=== PATIENT | male | born 1985 | race Caucasian/White ===

== ENCOUNTER 2019-08-31 17:43 | Observation (INO) | payer OTHER ==
[2019-08-31] MEDS ORDERED: Sodium Chloride 0.9% 1,000 ML IV ONE ×2 (17:56→19:31)
[2019-08-31] MEDS ORDERED: Acetaminophen 500 MG Tab PO ONE (17:56)
--- NOTE | 2019-08-31 18:10 | EDM.PDOC ---
ED HPI GENERAL MEDICAL PROBLEM - General Chief Complaint: Respiratory Problem Stated Complaint: COUGH & FEVER Time Seen by Provider: 08/31/19 17:44 Source of Information: Reports: Patient History Limitations: Reports: No Limitations - History of Present Illness INITIAL COMMENTS - FREE TEXT/NARRATIVE: HISTORY AND PHYSICAL: History of present illness: Patient is a 33-year-old male who presents to the emergency room today with complaints of fever, body aches, sore throat and cough that started last night. Patient states he works for a [employer] and is frequently/routinely interacting with people from out of state. Last night he started to develop a productive cough and had subjective fever. Today he had his check his temperature on 2 separate occasions, first reading was 104 and approximately an hour later it was 105 degrees. He is concerned he has COVID-19 due to the pandemic, exposure to [id number] workers and his symptoms. Patient denies any change in vision, syncope or near syncope. Denies any chest pain, back pain, abdominal pain, nausea, vomiting, diarrhea, constipation or dysuria. Has not noted any blood in urine or stool. Patient has been eating and drinking appropriately. He states his and child have felt well, currently asymptomatic. Review of systems: As per history of present illness and below otherwise all systems reviewed and negative. Past medical history: As per history of present illness and as reviewed below otherwise noncontributory. Surgical history: As per history of present illness and as reviewed below otherwise noncontributory. Social history: See social history for further information Family history: As per history of present illness and as reviewed below otherwise noncontributory. Physical exam: General: Well developed and well nourished 33-year-old male. Alert and oriented. Nontoxic-appearing and in no acute distress. HEENT: Atraumatic, normocephalic, pupils equal and reactive bilaterally, negative for conjunctival pallor or scleral icterus, mucous membranes moist, TMs normal bilaterally, throat clear, neck supple, nontender, trachea midline. No drooling or trismus noted. No meningeal signs. No hot potato voice noted. Lungs: Slightly diminished throughout otherwise clear to auscultation, breath sounds equal bilaterally, chest nontender. Dry nonproductive cough noted. Heart: S1S2, regular rate and rhythm without overt murmur Abdomen: Soft, nondistended, nontender. Negative for masses or hepatosplenomegaly. Negative for costovertebral tenderness. Skin: Intact, warm to touch, and slightly diaphoretic. No lesions or rashes noted. Extremities: Atraumatic, moves all extremities per self without difficulty or deficits, negative for cords or calf pain. Neurovascular unremarkable. Neuro: Awake, alert, oriented. Cranial nerves II through XII unremarkable. Cerebellum unremarkable. Motor and sensory unremarkable throughout. Exam nonfocal. Notes: Oral temp was done 102.9 He is also tachycardic. We will do sepsis work up along with chest x-ray. Chest x-ray shows a patchy infiltrate in the left upper lobe; COVID-19 not ruled out. Lab work is unremarkable. Patient continues to be slightly tachycardic and states he feels not much improved after the IV fluids and medication. We did discuss doing outpatient antibiotic therapy for the pneumonia versus calling the hospitalist for admission. He states he does not feel comfortable going home as he has a young child and who are there (in case his COVID-19 was positive). He was made aware that these results will not be available for several days. Dr. Osorio was consulted and agreeable to keeping this patient for observation. Patient is aware and agreeable to plan of care. Diagnostics: CBC, CMP, Strep, Influenza, COVID-19, Lactic, BC x 2, CXR Therapeutics: IV fluids, Tylenol, Rocephin, Azithromycin Impression: Pneumonia Plan: Observation admission to Med/Surg Definitive disposition and diagnosis as appropriate pending reevaluation and review of above. Duration: Day(s): headache Pain Score (Numeric/FACES): 5 - Related Data Allergies Allergy/AdvReac Type Severity Reaction Status Date / Time Penicillins Allergy Hives Verified 08/31/19 17:56 Home Meds: Home Meds . [No Known Home Meds] 08/31/19 [History] ED ROS GENERAL - Review of Systems Review Of Systems: Comprehensive ROS is negative, except as noted in HPI. ED EXAM, GENERAL - Physical Exam Exam: See Below (See dictation) Course - Vital Signs Last Recorded V/S: Last Vital Signs Temp 102.9 F H 08/31/19 18:35 Pulse 100 08/31/19 19:32 Resp 20 08/31/19 19:32 BP 117/69 08/31/19 17:45 Pulse Ox 93 L 04/10/20 19:32 - Orders/Labs/Meds Orders: Active Orders 24 hr Category Date Time Status Admission Status [Patient Status] [ADT] Stat ADT 08/31/19 19:31 Active CORONAVIRUS COVID-19 PCR PHL Stat Lab 08/31/19 18:40 Received CULTURE BLOOD [BC] Stat Lab 08/31/19 18:40 Received CULTURE BLOOD [BC] Stat Lab 08/31/19 19:01 Received CULTURE STREP A CONFIRMATION [RM] Stat Lab 08/31/19 18:39 Results STREP SCRN A RAPID W CULT CONF [RM] Stat Lab 08/31/19 18:39 Results Sodium Chloride 0.9% [Normal Saline] 1,000 ml Med 08/31/19 19:31 Active IV STAT cefTRIAXone [Rocephin in Dextrose,Iso-Osm 1 GM/50 ML] 1 Med 08/31/19 19:29 Active gm Premix Bag 1 bag IV ONETIME Blood Culture x2 Reflex Set [OM.PC] Stat Oth 08/31/19 17:59 Ordered Isolation [COMM] Routine Oth 08/31/19 17:55 Active Medication Orders Ceftriaxone Sodium/Dextrose 1 (gm/ Premix) 50 mls @ 100 mls/hr IV ONETIME ONE Stop: 08/31/19 19:58 Sodium Chloride (Normal Saline) 1,000 mls @ 150 mls/hr IV STAT ONE Stop: 09/01/19 02:10 Labs: Laboratory Tests 08/31/19 08/31/19 08/31/19 Range/Units 18:40 18:40 18:40 WBC 10.07 (4.0-11.0) K/uL RBC 5.64 (4.50-5.90) M/uL Hgb 16.6 (13.0-17.0) g/dL Hct 49.1 (38.0-50.0) % MCV 87.1 (80.0-98.0) fL MCH 29.4 (27.0-32.0) pg MCHC 33.8 (31.0-37.0) g/dL RDW Std Deviation 41.0 (28.0-62.0) fl RDW Coeff of Tamie 13 (11.0-15.0) % Plt Count 270 (150-400) K/uL MPV 10.20 (7.40-12.00) fL Neut % (Auto) 80.5 H (48.0-80.0) % Lymph % (Auto) 11.8 L (16.0-40.0) % [place] % (Auto) 7.6 (0.0-15.0) % Eos % (Auto) 0.0 (0.0-7.0) % Baso % (Auto) 0.1 (0.0-1.5) % Neut # (Auto) 8.1 H (1.4-5.7) K/uL Lymph # (Auto) 1.2 (0.6-2.4) K/uL [place] # (Auto) 0.8 (0.0-0.8) K/uL Eos # (Auto) 0.0 (0.0-0.7) K/uL Baso # (Auto) 0.0 (0.0-0.1) K/uL Nucleated RBC % 0.0 /100WBC Nucleated RBCs # 0 K/uL Lactate 1.2 (0.20-2.00) mmol/L Sodium 139 (136-148) mmol/L Potassium 4.2 (3.5-5.1) mmol/L Chloride 101 (98-107) mmol/L Carbon Dioxide 27.4 (21.0-32.0) mmol/L BUN 16 (7.0-18.0) mg/dL Creatinine 1.2 (0.8-1.3) mg/dL Est Cr Clr Drug Dosing 92.09 mL/min Estimated GFR (MDRD) > 60.0 ml/min Glucose 101 (74-106) mg/dL Calcium 9.1 (8.5-10.1) mg/dL Total Bilirubin 0.7 (0.2-1.0) mg/dL AST 18 (15-37) IU/L ALT 31 (14-63) IU/L Alkaline Phosphatase 66 (46-116) U/L Total Protein 7.7 (6.4-8.2) g/dL Albumin 4.0 (3.4-5.0) g/dL Globulin 3.7 (2.6-4.0) g/dL Albumin/Globulin Ratio 1.1 (0.9-1.6) Meds: Medications Generic Name Dose Route Start Last Admin Trade Name Freq PRN Reason Stop Dose Admin Ceftriaxone Sodium/Dextrose 1 50 mls @ 100 mls/hr 08/31/19 19:29 gm/ Premix IV 08/31/19 19:58 ONETIME ONE Sodium Chloride 1,000 mls @ 150 mls/hr 08/31/19 19:31 Normal Saline IV 09/01/19 02:10 STAT ONE Discontinued Medications Generic Name Dose Route Start Last Admin Trade Name Freq PRN Reason Stop Dose Admin Acetaminophen 1,000 mg 08/31/19 17:56 08/31/19 18:35 Tylenol Extra Strength PO 08/31/19 17:57 1,000 mg ONETIME ONE Administration Azithromycin 500 mg 08/31/19 19:31 Zithromax PO 08/31/19 19:32 NOW STA Doxycycline Hyclate 100 mg 08/31/19 18:59 Vibramycin PO 08/31/19 19:00 ONETIME ONE Sodium Chloride 1,000 mls @ 999 mls/hr 08/31/19 17:56 08/31/19 18:35 Normal Saline IV 08/31/19 18:56 999 mls/hr STAT ONE Administration Departure - Departure Time of Disposition: 19:40 Disposition: Refer to Observation Clinical Impression: Pneumonia Qualifiers: Pneumonia type: due to unspecified organism Laterality: left Lung location: upper lobe of lung Qualified Code(s): J18.9 - Pneumonia, unspecified organism - Discharge Information Referrals: Edin Oliva MD [Primary Care Provider] - Forms: ED Department Discharge Sepsis Event Note - Evaluation Sepsis Screening Result: No Definite Risk - Focused Exam Vital Signs: Vital Signs Temp Temp Pulse Resp BP Pulse Ox 08/31/19 19:32 100 20 93 L 08/31/19 18:35 102.9 F H 08/31/19 17:45 98.4 F 111 H 20 117/69 94 L Date Exam was Performed: 08/31/19 Time Exam was Performed: 19:35 - My Orders Last 24 Hours: My Active Orders 08/31/19 17:55 Isolation [COMM] Routine 08/31/19 17:59 Blood Culture x2 Reflex Set [OM.PC] Stat 08/31/19 18:39 CULTURE STREP A CONFIRMATION [RM] Stat STREP SCRN A RAPID W CULT CONF [RM] Stat 08/31/19 18:40 CORONAVIRUS COVID-19 PCR PHL Stat CULTURE BLOOD [BC] Stat 08/31/19 19:01 CULTURE BLOOD [BC] Stat 08/31/19 19:29 cefTRIAXone [Rocephin in Dextrose,Iso-Osm 1 GM/50 ML] 1 gm Premix Bag 1 bag IV ONETIME 08/31/19 19:31 Admission Status [Patient Status] [ADT] Stat Sodium Chloride 0.9% [Normal Saline] 1,000 ml IV STAT - Assessment/Plan Last 24 Hours: My Active Orders 08/31/19 17:55 Isolation [COMM] Routine 08/31/19 17:59 Blood Culture x2 Reflex Set [OM.PC] Stat 08/31/19 18:39 CULTURE STREP A CONFIRMATION [RM] Stat STREP SCRN A RAPID W CULT CONF [RM] Stat 08/31/19 18:40 CORONAVIRUS COVID-19 PCR PHL Stat CULTURE BLOOD [BC] Stat 08/31/19 19:01 CULTURE BLOOD [BC] Stat 08/31/19 19:29 cefTRIAXone [Rocephin in Dextrose,Iso-Osm 1 GM/50 ML] 1 gm Premix Bag 1 bag IV ONETIME 08/31/19 19:31 Admission Status [Patient Status] [ADT] Stat Sodium Chloride 0.9% [Normal Saline] 1,000 ml IV STAT
--- NOTE | 2019-08-31 18:33 | CR ---
INDICATION: Chest pain; shortness of breath; severe cough; COVID 19 precautions. Comparison: None. TECHNIQUE: Portable AP chest. FINDINGS: Patchy area of consolidation left upper lobe; COVID 19 is not ruled out. Normal size cardiac silhouette. No pneumothorax or pleural effusion. IMPRESSION: Patchy infiltrate left upper lobe; COVID 19 not ruled out. Dictated by Gayle Quintero MD @ Aug 31 2019 6:29PM Signed by Dr. Gayle Quintero @ Aug 31 2019 6:31PM
[2019-08-31] MEDS ORDERED: Doxycycline 100 MG Cap PO ONE (18:59)
[2019-08-31 19:15] LABS: BLOOD UREA NITROGEN,BUN 16 mg/dL (7.0-18.0); CARBON DIOXIDE,CO2 27.4 mmol/L (21.0-32.0); CHLORIDE,CL 101 mmol/L (98-107); GLUCOSE RANDOM 101 mg/dL (74-106); POTASSIUM,K 4.2 mmol/L (3.5-5.1); SODIUM,NA 139 mmol/L (136-148)
[2019-08-31] MEDS ORDERED: cefTRIAXone 1 GM in Premix Bag 1 BAG IV ONE (19:29)
[2019-08-31] MEDS ORDERED: Azithromycin 250 MG Tab PO STA (19:31)
[2019-08-31] MEDS ORDERED: Sodium Chloride 0.9% 1,000 ML IV SCH (20:00)
[2019-08-31] MEDS: Ascorbic Acid 500 MG Tab PO SCH (21:14)
--- NOTE | 2019-08-31 22:02 | PCM.HP.2 ---
H&P History of Present Illness - General Date of Service: 08/31/19 Admit Problem/Dx: Admission Diagnosis/Problem Admission Diagnosis/Problem Pneumonia - History of Present Illness Initial Comments - Free Text/Narative: Patient is a 33-year-old male who presents to the emergency room today with complaints of fever, body aches, sore throat and cough that started last night. Patient states he woke up in the middle on night drenched in sweats and had a high fever. 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 Patient states that fever is associated with develop a productive cough. He checked hi stemp at home , its was 104 and 105 on 2 separate occasions. He is concerned he has COVID-19 due to the pandemic, exposure to [id number] workers and his symptoms. Patient denies any change in vision, syncope or near syncope. Denies any chest pain, back pain, abdominal pain, nausea, vomiting, diarrhea, constipation or dysuria. Has not noted any blood in urine or stool. Patient has been eating and drinking appropriately. He states his and child have felt well, currently asymptomatic. Patient was slightly hypoxic 92-93 on RA resting, febrile and tachy in ER. BP was stable, CXR showed consolidation of left upper lung. Flu negative, Covid_19 swab sent for testing, Due to sepsis, Patient is being admitted for management of community acquired pneumonia and started on IV antibiotics. Onset of Symptoms: Reports: Today, Sudden Duration of Symptoms: Reports: Hour(s): Severity: Moderate headache Pain Score (Numeric/FACES): 5 - Related Data Allergies/Adverse Reactions: Allergies Allergy/AdvReac Type Severity Reaction Status Date / Time Penicillins Allergy Hives Verified 08/31/19 21:29 Home Medications: Home Meds . [No Known Home Meds] 08/31/19 [History] Past Medical History Musculoskeletal History: Reports: None Neurological History: Reports: None - Past Surgical History Neurological Surgical History: Reports: Other (See Below) Other Neurological Surgeries/Procedures: back sx for bulging disc Musculoskeletal Surgical History: Reports: Other (See Below) Other Musculoskeletal Surgeries/Procedures:: R knee re-alignment Social & Family History - Family History Family Medical History: Noncontributory - Tobacco Use Smoking Status *Q: Former Smoker Used Tobacco, but Quit: Yes Month/Year Tobacco Last Used: "12 years ago" - Recreational Drug Use Recreational Drug Use: No H&P Review of Systems - Review of Systems: Review Of Systems: See Below General: Reports: Fever, Chills, Malaise, Weakness, Fatigue, Night Sweats. Denies: Decreased Appetite, Weight Loss Pulmonary: Reports: Cough, Sputum. Denies: Shortness of Breath, Wheezing, Hemoptysis Cardiovascular: Reports: Dyspnea on Exertion. Denies: Chest Pain, Palpitations Gastrointestinal: Reports: Flatus. Denies: Abdominal Pain, Anorexia, Black Stool, Constipation, Diarrhea, Distension, Hematemesis Genitourinary: Denies: Dysuria, Frequency, Burning Musculoskeletal: Denies: Neck Pain, Shoulder Pain, Arm Pain Skin: Denies: Cyanosis, Jaundice, Mottled Exam - Exam Exam: See Below - Vital Signs Vital Signs: Last Vital Signs Temp 38.2 C H 08/31/19 20:50 Pulse 85 08/31/19 20:40 Resp 20 08/31/19 19:32 BP 114/66 08/31/19 20:35 Pulse Ox 95 08/31/19 20:40 Weight: 92 kg - Exam General: Alert, Oriented Neck: Supple, Trachea Midline Lungs: Normal Respiratory Effort, Decreased Breath Sounds (left upper lobe) Cardiovascular: Regular Rate, Regular Rhythm GI/Abdominal Exam: Normal Bowel Sounds, Soft, Non-Tender - Patient Data Lab Results Last 24 hrs: Laboratory Results - last 24 hr 08/31/19 08/31/19 08/31/19 Range/Units 18:40 18:40 18:40 WBC 10.07 (4.0-11.0) K/uL RBC 5.64 (4.50-5.90) M/uL Hgb 16.6 (13.0-17.0) g/dL Hct 49.1 (38.0-50.0) % MCV 87.1 (80.0-98.0) fL MCH 29.4 (27.0-32.0) pg MCHC 33.8 (31.0-37.0) g/dL RDW Std Deviation 41.0 (28.0-62.0) fl RDW Coeff of Tamie 13 (11.0-15.0) % Plt Count 270 (150-400) K/uL MPV 10.20 (7.40-12.00) fL Neut % (Auto) 80.5 H (48.0-80.0) % Lymph % (Auto) 11.8 L (16.0-40.0) % [place] % (Auto) 7.6 (0.0-15.0) % Eos % (Auto) 0.0 (0.0-7.0) % Baso % (Auto) 0.1 (0.0-1.5) % Neut # (Auto) 8.1 H (1.4-5.7) K/uL Lymph # (Auto) 1.2 (0.6-2.4) K/uL [place] # (Auto) 0.8 (0.0-0.8) K/uL Eos # (Auto) 0.0 (0.0-0.7) K/uL Baso # (Auto) 0.0 (0.0-0.1) K/uL Nucleated RBC % 0.0 /100WBC Nucleated RBCs # 0 K/uL Lactate 1.2 (0.20-2.00) mmol/L Sodium 139 (136-148) mmol/L Potassium 4.2 (3.5-5.1) mmol/L Chloride 101 (98-107) mmol/L Carbon Dioxide 27.4 (21.0-32.0) mmol/L BUN 16 (7.0-18.0) mg/dL Creatinine 1.2 (0.8-1.3) mg/dL Est Cr Clr Drug Dosing 92.09 mL/min Estimated GFR (MDRD) > 60.0 ml/min Glucose 101 (74-106) mg/dL Calcium 9.1 (8.5-10.1) mg/dL Total Bilirubin 0.7 (0.2-1.0) mg/dL AST 18 (15-37) IU/L ALT 31 (14-63) IU/L Alkaline Phosphatase 66 (46-116) U/L Total Protein 7.7 (6.4-8.2) g/dL Albumin 4.0 (3.4-5.0) g/dL Globulin 3.7 (2.6-4.0) g/dL Albumin/Globulin Ratio 1.1 (0.9-1.6) Urine Color Urine Appearance Urine pH (5.0-8.0) Ur Specific [place] (1.001-1.035) Urine Protein (NEGATIVE) mg/dL Urine Glucose (UA) (NEGATIVE) mg/dL Urine Ketones (NEGATIVE) mg/dL Urine Occult Blood (NEGATIVE) Urine Nitrite (NEGATIVE) Urine Bilirubin (NEGATIVE) Urine Urobilinogen (<2.0) EU/dL Ur Leukocyte Esterase (NEGATIVE) 08/31/19 Range/Units 21:45 WBC (4.0-11.0) K/uL RBC (4.50-5.90) M/uL Hgb (13.0-17.0) g/dL Hct (38.0-50.0) % MCV (80.0-98.0) fL MCH (27.0-32.0) pg MCHC (31.0-37.0) g/dL RDW Std Deviation (28.0-62.0) fl RDW Coeff of Tamie (11.0-15.0) % Plt Count (150-400) K/uL MPV (7.40-12.00) fL Neut % (Auto) (48.0-80.0) % Lymph % (Auto) (16.0-40.0) % [place] % (Auto) (0.0-15.0) % Eos % (Auto) (0.0-7.0) % Baso % (Auto) (0.0-1.5) % Neut # (Auto) (1.4-5.7) K/uL Lymph # (Auto) (0.6-2.4) K/uL [place] # (Auto) (0.0-0.8) K/uL Eos # (Auto) (0.0-0.7) K/uL Baso # (Auto) (0.0-0.1) K/uL Nucleated RBC % /100WBC Nucleated RBCs # K/uL Lactate (0.20-2.00) mmol/L Sodium (136-148) mmol/L Potassium (3.5-5.1) mmol/L Chloride (98-107) mmol/L Carbon Dioxide (21.0-32.0) mmol/L BUN (7.0-18.0) mg/dL Creatinine (0.8-1.3) mg/dL Est Cr Clr Drug Dosing mL/min Estimated GFR (MDRD) ml/min Glucose (74-106) mg/dL Calcium (8.5-10.1) mg/dL Total Bilirubin (0.2-1.0) mg/dL AST (15-37) IU/L ALT (14-63) IU/L Alkaline Phosphatase (46-116) U/L Total Protein (6.4-8.2) g/dL Albumin (3.4-5.0) g/dL Globulin (2.6-4.0) g/dL Albumin/Globulin Ratio (0.9-1.6) Urine Color YELLOW Urine Appearance CLEAR Urine pH 6.5 (5.0-8.0) Ur Specific [place] 1.025 (1.001-1.035) Urine Protein NEGATIVE (NEGATIVE) mg/dL Urine Glucose (UA) NEGATIVE (NEGATIVE) mg/dL Urine Ketones TRACE H (NEGATIVE) mg/dL Urine Occult Blood NEGATIVE (NEGATIVE) Urine Nitrite NEGATIVE (NEGATIVE) Urine Bilirubin NEGATIVE (NEGATIVE) Urine Urobilinogen 1.0 (<2.0) EU/dL Ur Leukocyte Esterase TRACE H (NEGATIVE) Result Diagrams: 08/31/19 18:40 08/31/19 18:40 E[place] Results Last 24 hrs: Microbiology 08/31/19 18:40 Influenza Type A Antigen Screen - Final Nasopharyngeal Swab NEGATIVE INFLUENZA A VIRUS AG REFERENCE RANGE: NEGATIVE Influenza Type B Antigen Screen - Final NEGATIVE INFLUENZA B VIRUS AG REFERENCE RANGE: NEGATIVE 08/31/19 18:39 Group A Streptococcus Rapid Screen - Final Throat NEGATIVE STREP A SCREEN REFERENCE RANGE: NEGATIVE Sepsis Event Note - Evaluation Sepsis Screening Result: No Definite Risk - Focused Exam Vital Signs: Vital Signs Temp Temp Temp Pulse Resp BP Pulse Ox 08/31/19 20:50 38.2 C H 08/31/19 20:40 85 95 08/31/19 20:35 84 114/66 94 L 08/31/19 19:32 100 20 93 L 08/31/19 19:05 38.1 C 08/31/19 18:35 39.4 C H 08/31/19 17:45 36.9 C 111 H 20 117/69 94 L Date Exam was Performed: 08/31/19 Time Exam was Performed: 22:37 - Problem List (1) Sepsis SNOMED Code(s): 93983599 ICD Code: A41.9 - SEPSIS, UNSPECIFIED ORGANISM Status: Acute Current Visit: Yes (2) Pneumonia SNOMED Code(s): 901651498 ICD Code: J18.9 - PNEUMONIA, UNSPECIFIED ORGANISM Status: Acute Current Visit: Yes Qualifiers: Pneumonia type: due to unspecified organism Laterality: left Lung location: upper lobe of lung Qualified Code(s): J18.9 - Pneumonia, unspecified organism Problem List Initiated/Reviewed/Updated: Yes Orders Last 24hrs: Active Orders 24 hr Category Date Time Status Admission Status [Patient Status] [ADT] Stat ADT 08/31/19 19:31 Active Ambulate [RC] ASDIRECTED Care 08/31/19 19:56 Active Antiembolic Devices [RC] PER UNIT ROUTINE Care 08/31/19 19:58 Active Oxygen Therapy [RC] PRN Care 08/31/19 19:56 Active Pulse Oximetry [RC] PRN Care 08/31/19 19:57 Active VTE/DVT Education [RC] PER UNIT ROUTINE Care 08/31/19 19:56 Active Vital Signs [RC] Q4H Care 08/31/19 19:56 Active Regular Diet [DIET] Diet 08/31/19 Dinner Active CORONAVIRUS COVID-19 PCR PHL Stat Lab 08/31/19 18:40 Received CULTURE BLOOD [BC] Stat Lab 08/31/19 18:40 Received CULTURE BLOOD [BC] Stat Lab 08/31/19 19:01 Received CULTURE STREP A CONFIRMATION [RM] Stat Lab 08/31/19 18:39 Results STREP SCRN A RAPID W CULT CONF [RM] Stat Lab 08/31/19 18:39 Results Acetaminophen [Tylenol] Med 08/31/19 20:00 Active 325 mg PO Q4H PRN Ascorbic Acid [Vitamin C] Med 08/31/19 20:15 Active 500 mg PO DAILY Azithromycin [Zithromax] Med 09/01/19 09:00 Active 500 mg PO Q24H Sodium Chloride 0.9% [Normal Saline] 1,000 ml Med 08/31/19 20:00 Active IV ASDIRECTED Sodium Chloride 0.9% [Normal Saline] 1,000 ml Med 08/31/19 19:31 Active IV STAT cefTRIAXone [Rocephin] 1 gm Med 09/01/19 09:00 Active Sodium Chloride 0.9% [Normal Saline] 50 ml IV Q24H Blood Culture x2 Reflex Set [OM.PC] Stat Oth 08/31/19 17:59 Ordered Isolation [COMM] Routine Oth 08/31/19 17:55 Active Sequential Compression Device [OM.PC] Per Unit Routine Oth 08/31/19 19:57 Ordered Resuscitation Status Routine Resus Stat 08/31/19 19:56 Ordered Medication Orders Acetaminophen (Tylenol) 325 mg PO Q4H PRN PRN Reason: Fever Ascorbic Acid (Vitamin C) 500 mg PO DAILY [facility]AIR[facility] Last Admin: 08/31/19 21:14 Dose: 500 mg Azithromycin (Zithromax) 500 mg PO Q24H [facility] Sodium Chloride (Normal Saline) 1,000 mls @ 150 mls/hr IV STAT ONE Stop: 09/01/19 02:10 Last Admin: 08/31/19 19:52 Dose: 150 mls/hr Sodium Chloride (Normal Saline) 1,000 mls @ 125 mls/hr IV ASDIRECTED [facility]IRA Ceftriaxone Sodium 1 gm/ (Sodium Chloride) 50 mls @ 100 mls/hr IV Q24H [facility] Assessment/Plan Comment:: 33 y/o admitted for CAP/Sepsis Lactic acid normal FLu negative, strep negative Received 1L fluids in ER BP is stable Fever improving, HR is improving as well Labs noted Will Cont Azithromycin and IV ceftriaxone Blood cultures obtained in ER, fu on results Obtain UA Will check HbA1c, TSH Will monitor and replete electrolytes as need fu on COVID
[2019-08-31 23:06] LABS: HEMOGLOBIN A1C 5.3 % (4.5-6.2)
[2019-08-31] MEDS: Acetaminophen 325 MG Tab PO PRN (23:38)
[2019-09-01 07:01] LABS: BLOOD UREA NITROGEN,BUN 12 mg/dL (7.0-18.0); CHLORIDE,CL 103 mmol/L (98-107); GLUCOSE RANDOM 97 mg/dL (74-106); POTASSIUM,K 3.8 mmol/L (3.5-5.1); SODIUM,NA 139 mmol/L (136-148)
[2019-09-01] MEDS ORDERED: Azithromycin 250 MG Tab PO SCH (09:00)
[2019-09-01] MEDS ORDERED: cefTRIAXone 1 GM in Sodium Chloride 0.9% 50 ML IV SCH (09:00)
[2019-09-01] MEDS: Ascorbic Acid 500 MG Tab PO SCH (09:18)
[2019-09-01] MEDS ORDERED: cefTRIAXone 1 GM in Premix Bag 1 BAG IV SCH (10:00)
[2019-09-01] MEDS: Acetaminophen 325 MG Tab PO PRN (10:32)
[2019-09-01] MEDS ORDERED: Magnesium Oxide 400 MG Tab PO ONE (10:42)
--- NOTE | 2019-09-01 11:51 | PCM.DCSUM1 ---
Discharge Summary - Hospital Course Free Text/Narrative:: Patient is a 33-year-old male who presents to the emergency room today with complaints of fever, body aches, sore throat and cough that started last night. Patient states he woke up in the middle on night drenched in sweats and had a high fever. 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 Patient states that fever is associated with develop a productive cough. He checked hi stemp at home , its was 104 and 105 on 2 separate occasions. He is concerned he has COVID-19 due to the pandemic, exposure to [id number] workers and his symptoms. Patient denies any change in vision, syncope or near syncope. Denies any chest pain, back pain, abdominal pain, nausea, vomiting, diarrhea, constipation or dysuria. Has not noted any blood in urine or stool. Patient has been eating and drinking appropriately. He states his and child have felt well, currently asymptomatic. Patient was slightly hypoxic 92-93 on RA resting, febrile and tachy in ER. BP was stable, CXR showed consolidation of left upper lung. Flu negative, Covid_19 swab sent for testing, Due to sepsis, Patient is being admitted for management of community acquired pneumonia and started on IV antibiotics. Over night sepsis resolved, patient was breathing on RA 95 to 97 % . Patient was keen on going home and wanted to be discharged since he was feeling better,. Patient was informed if he gets worsening of his symptoms to call a provider or come back to ER. Patient was hemodynamically stable for dc and discharge on oral antibiotics for recommended self isolation for 2 weeks. - Discharge Data Discharge Date: 09/01/19 Discharge Disposition: Home, Self-Care 01 Condition: Stable - Referral to Home Health Primary Care Physician: Edin Oliva MD - Discharge Diagnosis/Problem(s) (1) Sepsis SNOMED Code(s): 27364494 ICD Code: A41.9 - SEPSIS, UNSPECIFIED ORGANISM Status: Acute (2) Pneumonia SNOMED Code(s): 749741169 ICD Code: J18.9 - PNEUMONIA, UNSPECIFIED ORGANISM Status: Acute Qualifiers: Pneumonia type: due to unspecified organism Laterality: left Lung location: upper lobe of lung Qualified Code(s): J18.9 - Pneumonia, unspecified organism - Patient Instructions Diet: Regular Diet as Tolerated Activity: As Tolerated Driving: May Drive Today Showering/Bathing: May Shower Notify Provider of: Fever, Increased Pain, Swelling and Redness, Nausea and/or Vomiting Other/Special Instructions: please stay in self isolation for 14 days, notify your PCP if your symtpoms get worse such as chest pain, SOB, high feveres, Nausea, vomiting diarrhea - Discharge Plan *PRESCRIPTION DRUG MONITORING PROGRAM REVIEWED*: No *COPY OF PRESCRIPTION DRUG MONITORING REPORT IN PATIENT LORY: No Prescriptions/Med Rec: Acetaminophen [Tylenol] 325 mg PO Q4H PRN #20 tablet PRN Reason: Fever Ascorbic Acid [Vitamin C] 500 mg PO DAILY #20 tablet Levofloxacin 750 mg PO DAILY #5 tablet Home Medications: Home Meds Acetaminophen [Tylenol] 325 mg PO Q4H PRN #20 tablet 09/01/19 [Rx] Ascorbic Acid [Vitamin C] 500 mg PO DAILY #20 tablet 09/01/19 [Rx] Levofloxacin 750 mg PO DAILY #5 tablet 09/01/19 [Rx] Patient Handouts: Acetaminophen tablets or caplets, Levofloxacin tablets, Coronavirus Information 08/06/19, Ascorbic Acid, Vitamin C chewable tablets Referrals: Edin Oliva MD [Primary Care Provider] - - Discharge Summary/Plan Comment DC Time >30 min.: No - Patient Data Vitals - Most Recent: Last Vital Signs Temp 38 C 09/01/19 10:32 Pulse 85 09/01/19 07:49 Resp 15 09/01/19 07:49 BP 115/68 09/01/19 07:49 Pulse Ox 95 09/01/19 07:49 Weight - Most Recent: 92 kg I&O - Last 24 hours: Intake & Output 08/31/19 09/01/19 09/01/19 22:59 06:59 14:59 Intake Total 50 1225 Output Total 400 Balance 50 825 Lab Results - Last 24 hrs: Laboratory Results - last 24 hr 08/31/19 08/31/19 08/31/19 Range/Units 18:40 18:40 18:40 WBC 10.07 (4.0-11.0) K/uL RBC 5.64 (4.50-5.90) M/uL Hgb 16.6 (13.0-17.0) g/dL Hct 49.1 (38.0-50.0) % MCV 87.1 (80.0-98.0) fL MCH 29.4 (27.0-32.0) pg MCHC 33.8 (31.0-37.0) g/dL RDW Std Deviation 41.0 (28.0-62.0) fl RDW Coeff of Tamie 13 (11.0-15.0) % Plt Count 270 (150-400) K/uL MPV 10.20 (7.40-12.00) fL Neut % (Auto) 80.5 H (48.0-80.0) % Lymph % (Auto) 11.8 L (16.0-40.0) % [place] % (Auto) 7.6 (0.0-15.0) % Eos % (Auto) 0.0 (0.0-7.0) % Baso % (Auto) 0.1 (0.0-1.5) % Neut # (Auto) 8.1 H (1.4-5.7) K/uL Lymph # (Auto) 1.2 (0.6-2.4) K/uL [place] # (Auto) 0.8 (0.0-0.8) K/uL Eos # (Auto) 0.0 (0.0-0.7) K/uL Baso # (Auto) 0.0 (0.0-0.1) K/uL Nucleated RBC % 0.0 /100WBC Nucleated RBCs # 0 K/uL Lactate 1.2 (0.20-2.00) mmol/L Sodium 139 (136-148) mmol/L Potassium 4.2 (3.5-5.1) mmol/L Chloride 101 (98-107) mmol/L Carbon Dioxide 27.4 (21.0-32.0) mmol/L BUN 16 (7.0-18.0) mg/dL Creatinine 1.2 (0.8-1.3) mg/dL Est Cr Clr Drug Dosing 92.09 mL/min Estimated GFR (MDRD) > 60.0 ml/min Glucose 101 (74-106) mg/dL Hemoglobin A1c (4.5-6.2) % Calcium 9.1 (8.5-10.1) mg/dL Phosphorus (2.6-4.7) mg/dL Magnesium (1.8-2.4) mg/dL Total Bilirubin 0.7 (0.2-1.0) mg/dL AST 18 (15-37) IU/L ALT 31 (14-63) IU/L Alkaline Phosphatase 66 (46-116) U/L Total Protein 7.7 (6.4-8.2) g/dL Albumin 4.0 (3.4-5.0) g/dL Globulin 3.7 (2.6-4.0) g/dL Albumin/Globulin Ratio 1.1 (0.9-1.6) Free T4 (0.76-1.46) ng/dL TSH 3rd Generation (0.36-3.74) uIU/mL Urine Color Urine Appearance Urine pH (5.0-8.0) Ur Specific Dennis (1.001-1.035) Urine Protein (NEGATIVE) mg/dL Urine Glucose (UA) (NEGATIVE) mg/dL Urine Ketones (NEGATIVE) mg/dL Urine Occult Blood (NEGATIVE) Urine Nitrite (NEGATIVE) Urine Bilirubin (NEGATIVE) Urine Urobilinogen (<2.0) EU/dL Ur Leukocyte Esterase (NEGATIVE) 08/31/19 08/31/19 08/31/19 Range/Units 18:40 18:40 21:45 WBC (4.0-11.0) K/uL RBC (4.50-5.90) M/uL Hgb (13.0-17.0) g/dL Hct (38.0-50.0) % MCV (80.0-98.0) fL MCH (27.0-32.0) pg MCHC (31.0-37.0) g/dL RDW Std Deviation (28.0-62.0) fl RDW Coeff of Tamie (11.0-15.0) % Plt Count (150-400) K/uL MPV (7.40-12.00) fL Neut % (Auto) (48.0-80.0) % Lymph % (Auto) (16.0-40.0) % [place] % (Auto) (0.0-15.0) % Eos % (Auto) (0.0-7.0) % Baso % (Auto) (0.0-1.5) % Neut # (Auto) (1.4-5.7) K/uL Lymph # (Auto) (0.6-2.4) K/uL [place] # (Auto) (0.0-0.8) K/uL Eos # (Auto) (0.0-0.7) K/uL Baso # (Auto) (0.0-0.1) K/uL Nucleated RBC % /100WBC Nucleated RBCs # K/uL Lactate (0.20-2.00) mmol/L Sodium (136-148) mmol/L Potassium (3.5-5.1) mmol/L Chloride (98-107) mmol/L Carbon Dioxide (21.0-32.0) mmol/L BUN (7.0-18.0) mg/dL Creatinine (0.8-1.3) mg/dL Est Cr Clr Drug Dosing mL/min Estimated GFR (MDRD) ml/min Glucose (74-106) mg/dL Hemoglobin A1c 5.3 (4.5-6.2) % Calcium (8.5-10.1) mg/dL Phosphorus (2.6-4.7) mg/dL Magnesium (1.8-2.4) mg/dL Total Bilirubin (0.2-1.0) mg/dL AST (15-37) IU/L ALT (14-63) IU/L Alkaline Phosphatase (46-116) U/L Total Protein (6.4-8.2) g/dL Albumin (3.4-5.0) g/dL Globulin (2.6-4.0) g/dL Albumin/Globulin Ratio (0.9-1.6) Free T4 (0.76-1.46) ng/dL TSH 3rd Generation 0.31 L (0.36-3.74) uIU/mL Urine Color YELLOW Urine Appearance CLEAR Urine pH 6.5 (5.0-8.0) Ur Specific Dennis 1.025 (1.001-1.035) Urine Protein NEGATIVE (NEGATIVE) mg/dL Urine Glucose (UA) NEGATIVE (NEGATIVE) mg/dL Urine Ketones TRACE H (NEGATIVE) mg/dL Urine Occult Blood NEGATIVE (NEGATIVE) Urine Nitrite NEGATIVE (NEGATIVE) Urine Bilirubin NEGATIVE (NEGATIVE) Urine Urobilinogen 1.0 (<2.0) EU/dL Ur Leukocyte Esterase TRACE H (NEGATIVE) 09/01/19 09/01/19 09/01/19 Range/Units 06:08 06:08 06:08 WBC 7.88 (4.0-11.0) K/uL RBC 4.99 (4.50-5.90) M/uL Hgb 14.4 (13.0-17.0) g/dL Hct 43.6 (38.0-50.0) % MCV 87.4 (80.0-98.0) fL MCH 28.9 (27.0-32.0) pg MCHC 33.0 (31.0-37.0) g/dL RDW Std Deviation 40.8 (28.0-62.0) fl RDW Coeff of Tamie 13 (11.0-15.0) % Plt Count 223 (150-400) K/uL MPV 10.30 (7.40-12.00) fL Neut % (Auto) 73.0 (48.0-80.0) % Lymph % (Auto) 15.2 L (16.0-40.0) % [place] % (Auto) 11.7 (0.0-15.0) % Eos % (Auto) 0.0 (0.0-7.0) % Baso % (Auto) 0.1 (0.0-1.5) % Neut # (Auto) 5.8 H (1.4-5.7) K/uL Lymph # (Auto) 1.2 (0.6-2.4) K/uL [place] # (Auto) 0.9 H (0.0-0.8) K/uL Eos # (Auto) 0.0 (0.0-0.7) K/uL Baso # (Auto) 0.0 (0.0-0.1) K/uL Nucleated RBC % 0.0 /100WBC Nucleated RBCs # 0 K/uL Lactate (0.20-2.00) mmol/L Sodium 139 (136-148) mmol/L Potassium 3.8 (3.5-5.1) mmol/L Chloride 103 (98-107) mmol/L Carbon Dioxide 25.0 (21.0-32.0) mmol/L BUN 12 (7.0-18.0) mg/dL Creatinine 1.0 (0.8-1.3) mg/dL Est Cr Clr Drug Dosing 110.51 mL/min Estimated GFR (MDRD) > 60.0 ml/min Glucose 97 (74-106) mg/dL Hemoglobin A1c (4.5-6.2) % Calcium 7.8 L (8.5-10.1) mg/dL Phosphorus 2.6 (2.6-4.7) mg/dL Magnesium 1.6 L (1.8-2.4) mg/dL Total Bilirubin (0.2-1.0) mg/dL AST (15-37) IU/L ALT (14-63) IU/L Alkaline Phosphatase (46-116) U/L Total Protein (6.4-8.2) g/dL Albumin (3.4-5.0) g/dL Globulin (2.6-4.0) g/dL Albumin/Globulin Ratio (0.9-1.6) Free T4 0.84 (0.76-1.46) ng/dL TSH 3rd Generation (0.36-3.74) uIU/mL Urine Color Urine Appearance Urine pH (5.0-8.0) Ur Specific Dennis (1.001-1.035) Urine Protein (NEGATIVE) mg/dL Urine Glucose (UA) (NEGATIVE) mg/dL Urine Ketones (NEGATIVE) mg/dL Urine Occult Blood (NEGATIVE) Urine Nitrite (NEGATIVE) Urine Bilirubin (NEGATIVE) Urine Urobilinogen (<2.0) EU/dL Ur Leukocyte Esterase (NEGATIVE) DAYDAY Results - Last 24 hrs: Microbiology 08/31/19 18:40 Influenza Type A Antigen Screen - Final Nasopharyngeal Swab NEGATIVE INFLUENZA A VIRUS AG REFERENCE RANGE: NEGATIVE Influenza Type B Antigen Screen - Final NEGATIVE INFLUENZA B VIRUS AG REFERENCE RANGE: NEGATIVE 08/31/19 18:39 Group A Streptococcus Rapid Screen - Final Throat NEGATIVE STREP A SCREEN REFERENCE RANGE: NEGATIVE Med Orders - Current: Current Medications Acetaminophen (Tylenol) 325 mg PO Q4H PRN PRN Reason: Fever Last Admin: 09/01/19 10:32 Dose: 325 mg Ascorbic Acid (Vitamin C) 500 mg PO DAILY [facility] Last Admin: 09/01/19 09:18 Dose: 500 mg Azithromycin (Zithromax) 500 mg PO Q24H [facility] Last Admin: 09/01/19 09:18 Dose: 500 mg Sodium Chloride (Normal Saline) 1,000 mls @ 125 mls/hr IV ASDIRECTED [facility] Last Admin: 09/01/19 03:00 Dose: 125 mls/hr Ceftriaxone Sodium/Dextrose 1 (gm/ Premix) 50 mls @ 100 mls/hr IV Q24H [facility] Last Admin: 09/01/19 10:30 Dose: 100 mls/hr Discontinued Medications Acetaminophen (Tylenol Extra Strength) 1,000 mg PO ONETIME ONE Stop: 08/31/19 17:57 Last Admin: 08/31/19 18:35 Dose: 1,000 mg Azithromycin (Zithromax) 500 mg PO NOW STA Stop: 08/31/19 19:32 Last Admin: 08/31/19 19:48 Dose: 500 mg Doxycycline Hyclate (Vibramycin) 100 mg PO ONETIME ONE Stop: 08/31/19 19:00 Last Admin: 08/31/19 19:53 Dose: Not Given Sodium Chloride (Normal Saline) 1,000 mls @ 999 mls/hr IV STAT ONE Stop: 08/31/19 18:56 Last Admin: 08/31/19 18:35 Dose: 999 mls/hr Ceftriaxone Sodium/Dextrose 1 (gm/ Premix) 50 mls @ 100 mls/hr IV ONETIME ONE Stop: 08/31/19 19:58 Last Admin: 08/31/19 19:52 Dose: 100 mls/hr Sodium Chloride (Normal Saline) 1,000 mls @ 150 mls/hr IV STAT ONE Stop: 09/01/19 02:10 Last Admin: 08/31/19 19:52 Dose: 150 mls/hr Ceftriaxone Sodium 1 gm/ (Sodium Chloride) 50 mls @ 100 mls/hr IV Q24H [facility] Magnesium Oxide (Magnesium Oxide) 800 mg PO ONETIME ONE Stop: 09/01/19 10:43 Last Admin: 09/01/19 11:20 Dose: 800 mg
== END 2019-09-01 12:30 | disposition home or self-care (01) ==
LOC: MW.ED 17:43 → MW.MS 19:31
PROVIDERS: ADMIT Student in an Organized Health Care Education/Training Program; ATTEND Student in an Organized Health Care Education/Training Program
DX: A41.9 Sepsis, unspecified organism (principal); J18.9 Pneumonia, unspecified organism; Z79.899 Other long term (current) drug therapy; Z88.0 Allergy status to penicillin; Z87.891 Personal history of nicotine dependence
CPT/HCPCS: 36415; 71045; 80048; 80053; 81003; 83036; 83605; 83735; 84100; 84439; 84443; 85025; 87040; 87081; 87635; 87804; 87880; 96361; 96365; 96376; 99284; A9270; G0378; J0696; J7030; 99283; U0002

== ENCOUNTER 2019-10-01 18:32 | Emergency (ER) | payer OTHER ==
--- NOTE | 2019-10-01 18:45 | EDM.PDOC ---
ED HPI GENERAL MEDICAL PROBLEM - General Chief Complaint: Lower Extremity Injury/Pain Stated Complaint: LEFT ANKLE INJURY Time Seen by Provider: 10/01/19 18:33 Source of Information: Reports: Patient History Limitations: Reports: No Limitations - History of Present Illness INITIAL COMMENTS - FREE TEXT/NARRATIVE: HISTORY AND PHYSICAL: History of present illness: Patient is a 34-year-old male who presents to the emergency room with complaints of left foot and ankle pain after fall. He states he fell approximately 6 feet off of a chicken coop landing with most of his weight on his left heel/foot. Pain is at the bottom of the left heel and radiates to the lateral aspect of the ankle and mid top of foot. Increased pain with weightbearing. Denies hitting his head or having any loss of consciousness. Denies any other extremity involvement. Offers no systemic complaints. Review of systems: As per history of present illness and below otherwise all systems reviewed and negative. Past medical history: As per history of present illness and as reviewed below otherwise noncontributory. Surgical history: As per history of present illness and as reviewed below otherwise noncontributory. Social history: See social history for further information Family history: As per history of present illness and as reviewed below otherwise noncontributory. Physical exam: General: Well-developed and well-nourished 34-year-old male. Alert and oriented. Nontoxic-appearing and in no acute distress. HEENT: Atraumatic, normocephalic, pupils equal and reactive bilaterally, negative for conjunctival pallor or scleral icterus, mucous membranes moist, TMs normal bilaterally, throat clear, neck supple, nontender, trachea midline. No drooling or trismus noted. No meningeal signs. No hot potato voice noted. Lungs: Clear to auscultation, breath sounds equal bilaterally, chest nontender. Heart: S1S2, regular rate and rhythm without overt murmur Abdomen: Soft, nondistended, nontender. Skin: Redness and mild soft tissue swelling noted to the left lateral ankle and mid foot. Otherwise remaining skin is intact, warm, dry. No lesions or rashes noted. Extremities: Pain with palpation of the left heel into arch, left lateral ankle and mid mid-foot. Strong pedal pulse. Good flexion and extension of the ankle, + CMS. Moves all other extremities per self without difficulty or deficits, negative for cords or calf pain. Appears to have no Achilles involvement. Neurovascular unremarkable. Neuro: Awake, alert, oriented. Cranial nerves II through XII unremarkable. Cerebellum unremarkable. Motor and sensory unremarkable throughout. Exam nonfocal. Notes: Patient declines wanting anything for pain at this time. X-ray shows a posterior calcaneus fracture. The foot and ankle are otherwise unremarkable. A fiberglass posterior splint that was heavily embedded with padding was applied. Crutches, the importance of follow-up, medication and supportive care measures were reviewed and discussed. Signs and symptoms that would prompt him to return to the emergency room. Voices understanding and is agreeable to plan of care. Denies any further questions or concerns at this time. Diagnostics: X-ray Therapeutics: Fiberglass splint and crutches Prescription: Percocet Impression: Posterior calcaneal fracture, left Plan: 1. Rest, ice, elevate the affected extremity. Please wear the splint and use crutches as directed- NON WEIGHT BEARING. 2. Tylenol and/or Ibuprofen as needed for pain management. Percocet for moderate to severe pain. This medication may cause drowsiness, so do not take it while driving or needing to be functioning outside the house. 3. Follow up with the Orthopedic provider at [facility] or Dr. Simmons ( paper plate machine tender) as we discussed. 4. Return to the ED as needed and as discussed. Definitive disposition and diagnosis as appropriate pending reevaluation and review of above. left heel Pain Score (Numeric/FACES): 6 - Related Data Allergies Allergy/AdvReac Type Severity Reaction Status Date / Time Penicillins Allergy Hives Verified 10/01/19 18:59 Home Meds: Home Meds oxyCODONE HCl/Acetaminophen [Percocet 7.5-325 mg Tablet] 1 each PO Q6HR PRN #20 tablet 10/01/19 [Rx] Past Medical History Musculoskeletal History: Reports: None Neurological History: Reports: None - Past Surgical History Neurological Surgical History: Reports: Other (See Below) Other Neurological Surgeries/Procedures: back sx for bulging disc Musculoskeletal Surgical History: Reports: Other (See Below) Other Musculoskeletal Surgeries/Procedures:: R knee re-alignment Social & Family History - Family History Family Medical History: Noncontributory - Caffeine Use Caffeine Use: Reports: Coffee Review of Systems - Review of Systems Review Of Systems: Comprehensive ROS is negative, except as noted in HPI. ED EXAM, GENERAL - Physical Exam Exam: See Below (See dictation) Course - Vital Signs Last Recorded V/S: Last Vital Signs Temp 97.7 F 10/01/19 19:00 Pulse 77 10/01/19 19:00 Resp 17 10/01/19 19:00 BP 138/71 10/01/19 19:00 Pulse Ox 97 10/01/19 19:00 Departure - Departure Time of Disposition: 19:50 Disposition: Home, Self-Care 01 Clinical Impression: Left calcaneal fracture Qualifiers: Encounter type: initial encounter Calcaneus location: body Fracture type: closed Fracture alignment: nondisplaced Qualified Code(s): S92.015A - Nondisplaced fracture of body of left calcaneus, initial encounter for closed fracture - Discharge Information Prescriptions: oxyCODONE HCl/Acetaminophen [Percocet 7.5-325 mg Tablet] 1 each PO Q6HR PRN #20 tablet PRN Reason: Pain (Moderate 4-6) Instructions: Calcaneal Fracture Repair Surgery, Care After Referrals: Edin Oliva MD [Primary Care Provider] - Forms: ED Department Discharge Additional Instructions: The following information is given to patients seen in the emergency department who are being discharged to home. This information is to outline your options for follow-up care. We provide all patients seen in our emergency department with a follow-up referral. The need for follow-up, as well as the timing and circumstances, are variable depending upon the specifics of your emergency department visit. If you don't have a primary care physician on staff, we will provide you with a referral. We always advise you to contact your personal physician following an emergency department visit to inform them of the circumstance of the visit and for follow-up with them and/or the need for any referrals to a consulting specialist. The emergency department will also refer you to a specialist when appropriate. This referral assures that you have the opportunity for follow-up care with a specialist. All of these measure are taken in an effort to provide you with optimal care, which includes your follow-up. Under all circumstances we always encourage you to contact your private physician who remains a resource for coordinating your care. When calling for follow-up care, please make the office aware that this follow-up is from your recent emergency room visit. If for any reason you are refused follow-up, please contact the [facility] Emergency Department at and asked to speak to the emergency department charge nurse. Dr Simmons, Nurse Special [facility] [address] [facility] [address] [facility] [address] [facility] [address] [place], [place] [id number] 1. Rest, ice, elevate the affected extremity. Please wear the splint and use crutches as directed- NON WEIGHT BEARING. 2. Tylenol and/or Ibuprofen as needed for pain management. Percocet for moderate to severe pain. This medication may cause drowsiness, so do not take it while driving or needing to be functioning outside the house. 3. Follow up with the Orthopedic provider at [facility] in [place] or Dr. Simmons ( paper plate machine tender) as we discussed. 4. Return to the ED as needed and as discussed. Sepsis Event Note - Focused Exam Vital Signs: Vital Signs Temp Pulse Resp BP Pulse Ox 10/01/19 19:00 97.7 F 77 17 138/71 97 Date Exam was Performed: 10/01/19 Time Exam was Performed: 19:47
--- NOTE | 2019-10-01 19:43 | CR ---
Left calcaneus: Axial view of the left calcaneus was obtained. Fracture is identified within the posterior calcaneus. No significant displacement is seen. Fracture is not definitely identified on lateral view of of the ankle or foot. Impression: 1. Posterior calcaneal fracture. Diagnostic code #3 This report was dictated in MDT
--- NOTE | 2019-10-01 19:43 | CR ---
Left foot: 2 views of the left foot were obtained. Comparison: No prior foot exam is available. Joint spaces are preserved. No discrete fracture or other bony abnormality is appreciated. Impression: 1. Nothing acute is seen on 2 view left foot exam. Diagnostic code #1 This report was dictated in MDT
--- NOTE | 2019-10-01 19:43 | CR ---
Left ankle: 3 views left ankle were obtained. Comparison: No prior ankle study. Ankle mortise is symmetric. No fracture, dislocation or other bony abnormality is identified. Impression: 1. No abnormality is identified on 3 view left ankle exam. Diagnostic code #1 This report was dictated in MDT
== END 2019-10-01 20:15 | disposition home or self-care (01) ==
LOC: MW.ED 18:32
DX: S92.015A Nondisplaced fracture of body of left calcaneus, initial encounter for closed fracture (principal); Z88.0 Allergy status to penicillin; W20.8XXA Other cause of strike by thrown, projected or falling object, initial encounter
CPT/HCPCS: 29515; 73610-26-LT; 73610-LT; 73620-26-LT; 73620-LT; 73650-26-LT; 73650-LT; 99283; 99283-25